=== PATIENT | male | born 1985 | race African-American/Black ===

== ENCOUNTER → 2016-10-16 | Outpatient (CLI) | payer BC ==
[~2016-10-16] MED LIST: CYCL10TA6 PO; IBUP-1050 PO; METH4PAK PO; OXYC1TAB3 PO; VLT/50 PO
--- NOTE | 2016-10-16 16:12 | DIAGNOSTIC IMAGING REPORT ---
LUMBAR SPINE 2 OR 3 VIEWS CLINICAL HISTORY: LOW BACK PAIN pain COMPARISON STUDY: None FINDINGS: Lumbar scoliosis possibly due to muscular spasm. No acute bony abnormality. No evidence for compression deformity. Disc spaces are well preserved. IMPRESSION: Scoliosis possibly on the basis of muscular spasm. Otherwise negative lumbar spine Electronically signed by: Delvin Dolan M.D. 10/16/2016 4:11 PM Dictated Date/Time: 10/16/2016 4:10 PM
== END | disposition home or self-care (01) ==
LOC: C.RADBC 15:55
PROVIDERS: ATTEND Family Medicine
DX: M54.5 Low back pain (principal); M41.9 Scoliosis, unspecified

== ENCOUNTER 2016-11-03 11:46 | Emergency (ER) | payer BC ==
[~2016-11-03] VITALS: Ht 177.8 cm; Wt 112.0 kg
[2016-11-03 11:50] VITALS: TEMP 36.8; Ht 177.8 cm; Wt 112.0 kg
[2016-11-03] MEDS ORDERED: CYCL10TA6 PO (11:58)
[2016-11-03] MEDS ORDERED: VLT/50 PO (11:58)
[2016-11-03] MEDS ORDERED: OXYCODONE HCL IR 5 MG TAB (IMMEDIATE RELEASE) PO STA (14:13)
--- NOTE | 2016-11-03 16:54 | DIAGNOSTIC IMAGING REPORT ---
MRI OF THE LUMBAR SPINE WITHOUT IV CONTRAST CLINICAL HISTORY: Low back pain with left lower extremity radiculopathy. COMPARISON STUDY: Radiographs of the lumbar spine dated 10/16/2016. TECHNIQUE: MRI of the lumbar spine is performed utilizing various T1 and T2-weighted sequences in the axial and sagittal planes. IV contrast was not administered for this examination. FINDINGS: Vertebral body height and alignment are maintained throughout the lumbar spine. Mild degenerative endplate edema is seen at L5-S1. Marrow signal intensity is otherwise normal throughout the visualized bony structures. The transverse and spinous processes appear intact. There is no evidence of spondylolysis. Intervertebral discs: There is degenerative disc desiccation and loss of height at L5-S1. The intervertebral discs are otherwise normal in height and signal intensity. Spinal cord: The visualized spinal cord is normal in morphology and signal intensity. The conus medullaris terminates at the level of L1. The nerve roots of the cauda equina are normal in morphology. L1-L2: Unremarkable. L2-L3: Unremarkable. L3-L4: Unremarkable. L4-L5: Unremarkable. L5-S1: There is a disc herniation eccentric to the left with an inferiorly extruded fragment. The disc fragment measures up to 1.4 cm. There is mild acquired compromise of the central canal at this level with a minimum AP diameter of 8 mm. The disc fragment impinges on the transiting left sacral nerve roots. The neural foramina are clear at this level. Sacrum: The visualized sacrum is normal in morphology and signal intensity. Soft tissues: The paraspinous soft tissues are within normal limits. The retroperitoneal structures are normal as visualized but incompletely assessed. IMPRESSION: 1. There is a disc herniation eccentric to the left with an inferiorly extruded fragment. This contributes to mild acquired compromise of the central canal and impinges on the transiting left-sided sacral nerve roots. 2. No significant degenerative change is identified at the remaining lumbar levels. 3. Mild degenerative endplate edema is noted at L5-S1. Dictated: 11/03/2016 4:40 PM Transcribed: 11/03/2016 4:52 PM CHILO_Mike Electronically signed by: Ru Brock M.D. 11/03/2016 5:05 PM Dictated Date/Time: 11/03/2016 4:40 PM
[2016-11-03 17:35] VITALS: BP 148/82; PULSE 56; O2SAT 98
[2016-11-03] MEDS ORDERED: OXYC1TAB3 PO (17:37)
[2016-11-03] MEDS ORDERED: METH4PAK PO (17:37)
[2016-11-03] MEDS ORDERED: OXYCODONE IR HOME PACK PO ONE (17:45)
--- NOTE | 2016-11-03 20:32 | EMERGENCY ROOM VISIT NOTE ---
History First contact with patient: 12:19 Chief Complaint: BACK PAIN Stated Complaint: SEVERE LOWER BACK AND LEFT LEG PAIN History of Present Illness The patient is a 31 year old male who presents to the Emergency Room with complaints of an approximate 2 week history of lower back pain. The patient reports that he then started to develop severe pain radiating into his left buttock and down the left lower extremity to the foot. The patient denies any recent injury to his back. He denies any history of chronic back pain. The patient saw his family doctor when the pain first started, and had x-rays performed that suggested possible muscle spasm. He was seen by a chiropractor and physical therapist. The patient now reports no weakness of the left lower extremity. He has not noticed any foot drop. He denies any bladder/bowel difficulties/incontinence or saddle anesthesia. He rates his discomfort a 10 out of 10. Review of Systems HEENT: Denies dizziness, visual problems, hearing loss, tinnitus. Denies difficulty swallowing or oral lesions. PULMONARY: Denies cough, shortness of breath, sputum production or hemoptysis. CARDIOVASCULAR: Denies chest pain, palpitations, dyspnea on exertion, orthopnea or peripheral edema. GASTROINTESTINAL: Denies diarrhea, constipation, nausea, vomiting, or abdominal pain. GENITOURINARY: Denies dysuria, frequency, urgency or nocturia. NEUROLOGIC: Denies history of epilepsy, CVA, TIA or chronic headaches. MUSCULOSKELETAL: Denies history of joint tenderness/swelling. SKIN: Denies rashes or lesions. PSYCHIATRIC: Denies history of depression or mental illness. ENDOCRINE: Denies history of diabetes or thyroid disorders. Past Medical/Surgical History Medical Problems: (1) No significant past medical history Surgical Problems: (1) History of ankle surgery Family History FH: cancer FH: diabetes mellitus FH: hypertension Social History Smoking Status: Never Smoker Alcohol Use: none Marital Status: Housing Status: lives with family Occupation Status: employed Current/Historical Medications Scheduled Cyclobenzaprine Hcl (Flexeril), 10 MG PO TID Diclofenac Sod (Voltaren), 50 MG PO BID Methylprednisolone (Medrol Dosepak), 0 PO DAILY Scheduled PRN Oxycodone Ir (Roxicodone Ir), 1-2 TAB PO Q4H PRN for Pain Allergies Coded Allergies: Amoxicillin (Verified Allergy, Unknown, unknown, 11/03/16) Physical Exam Vital Signs Date Time Temp Pulse Resp B/P Pulse Ox O2 Delivery O2 Flow Rate FiO2 11/03/16 17:35 56 148/82 98 Room Air 11/03/16 11:50 36.8 71 18 145/92 93 Room Air Physical Exam CONSTITUTIONAL: Healthy and well nourished. Alert and oriented X 3 with positive affect. Patient appears in moderate discomfort from pain. HEENT: Normocephalic, atraumatic. Pupils equal, round and reactive. NECK: Full active range of motion without discomfort. RESPIRATORY: Clear to auscultation bilaterally with no wheezing, crackles, rhonchi or stridor. CARDIOVASCULAR: Regular rate and rhythm with no murmurs, rubs or gallops. GASTROINTESTINAL: Bowel sounds present in all quadrants. Soft and nontender to palpation. MUSCULOSKELETAL: Examination shows a positive left straight leg raise. Negative logroll. Ankle plantar/dorsiflexion strength is 4 out of 5 on the left , 5 out of 5 on the right. Pedal pulses are intact. The patient has tenderness to palpation through the left lower lumbar region and SI joint. Pelvis stable with rock. INTEGUMENTARY: No rash or other significant dermatologic conditions noted. NEUROLOGIC: No focal neurologic deficits noted. Lower extremity deep tendon reflexes are 2+ and symmetric bilaterally. Medical Decision & Procedures ER Provider Diagnostic Interpretation: MRI of the lumbar spine shows an L5-S1 herniated disc with fragment. Radiologist report is as follows: MRI OF THE LUMBAR SPINE WITHOUT IV CONTRAST CLINICAL HISTORY: Low back pain with left lower extremity radiculopathy. COMPARISON STUDY: Radiographs of the lumbar spine dated 10/16/2016. TECHNIQUE: MRI of the lumbar spine is performed utilizing various T1 and T2-weighted sequences in the axial and sagittal planes. IV contrast was not administered for this examination. FINDINGS: Vertebral body height and alignment are maintained throughout the lumbar spine. Mild degenerative endplate edema is seen at L5-S1. Marrow signal intensity is otherwise normal throughout the visualized bony structures. The transverse and spinous processes appear intact. There is no evidence of spondylolysis. Intervertebral discs: There is degenerative disc desiccation and loss of height at L5-S1. The intervertebral discs are otherwise normal in height and signal intensity. Spinal cord: The visualized spinal cord is normal in morphology and signal intensity. The conus medullaris terminates at the level of L1. The nerve roots of the cauda equina are normal in morphology. L1-L2: Unremarkable. L2-L3: Unremarkable. L3-L4: Unremarkable. L4-L5: Unremarkable. L5-S1: There is a disc herniation eccentric to the left with an inferiorly extruded fragment. The disc fragment measures up to 1.4 cm. There is mild acquired compromise of the central canal at this level with a minimum AP diameter of 8 mm. The disc fragment impinges on the transiting left sacral nerve roots. The neural foramina are clear at this level. Sacrum: The visualized sacrum is normal in morphology and signal intensity. Soft tissues: The paraspinous soft tissues are within normal limits. The retroperitoneal structures are normal as visualized but incompletely assessed. IMPRESSION: 1. There is a disc herniation eccentric to the left with an inferiorly extruded fragment. This contributes to mild acquired compromise of the central canal and impinges on the transiting left-sided sacral nerve roots. 2. No significant degenerative change is identified at the remaining lumbar levels. 3. Mild degenerative endplate edema is noted at L5-S1. Medications Administered Medications (Trade) Dose Ordered Sig/Partha Route Start Time Stop Time Status Last Admin Dose Admin Oxycodone HCl (Roxicodone Immediate Rel Tab) 10 mg NOW STAT PO 11/03/16 14:13 11/03/16 14:14 DC 11/03/16 14:46 10 MG Oxycodone HCl (Roxicodone Immediate Rel 5MG Home Pack) 1 homepack UD ONCE PO 11/03/16 17:45 11/03/16 17:46 DC 11/03/16 18:13 1 HOMEPACK Prednisone (PredniSONE TAB) 60 mg NOW STAT PO 11/03/16 17:38 11/03/16 17:39 DC 11/03/16 18:12 60 MG ED Course Patient history and physical exam were performed. Nurse's notes were reviewed. Vital signs were reviewed, showing a mildly elevated blood pressure 145/92. Although the patient appeared in significant distress, he refused any analgesics. He also refused intravenous access. Based on history and clinical exam findings, I did suggest performing an emergent MRI to rule out cauda equina syndrome or other acute etiologies for his pain. The patient was in agreement. A noncontrast MRI of the lumbar spine showed an L5-S1 disc herniation with extruded fragment. After the MRI was completed, the patient did request something for pain, and was administered OxyIR 5 mg, still continuing to refuse intramuscular or parenteral analgesics. At this point, I discussed further disposition and follow-up for his back. The patient was offered possible observation or admission status for his condition. The patient stated that he would rather go home. The case was also further discussed with Dr. Galo, spine surgeon on-call, who will see him in outpatient follow-up. The patient was administered prednisone 60 mg prior to discharge, and received a prescription for Medrol Dosepak and OxyIR 5 mg. No drinking alcohol or driving while taking OxyIR. The patient was provided contact information for Dr. Galo's office. The patient was happy with plan of care, voiced understanding of all discharge instructions, and rated his pain a 6 out of 10 at the time of discharge. He was encouraged to return to the emergency department for progressively worsening or uncontrolled symptoms. Impression Primary Impression: Herniation of lumbar intervertebral disc with radiculopathy Departure Information Prescriptions Methylprednisolone (MEDROL DOSEPAK) 4 Mg Estuardo 0 PO DAILY, #1 PKT Prov: Adolfo Santos PA 11/03/16 Oxycodone Ir (Roxicodone Ir) 5 Mg Tab 1-2 TAB PO Q4H Y for Pain, #24 TAB For Initial Treatment Prov: Adolfo Santos PA 11/03/16 Referrals No Doctor, Assigned (PCP) [facility] Instructions [facility]
[2016-11-13] MEDS ORDERED: IBUP-1050 PO (07:37)
== END 2016-11-03 18:17 | disposition home or self-care (01) ==
LOC: C.EDB 11:48 → C.EDD 18:17
DX: M51.16 Intervertebral disc disorders with radiculopathy, lumbar region (principal); Z80.9 Family history of malignant neoplasm, unspecified; Z83.3 Family history of diabetes mellitus; Z82.49 Family history of ischemic heart disease and other diseases of the circulatory system; Z79.899 Other long term (current) drug therapy

== ENCOUNTER → 2016-11-05 | Outpatient (CLI) | payer BC | END | disposition home or self-care (01) | LOC: C.LABBC 09:21 | PROVIDERS: ATTEND Orthopaedic Surgery Orthopaedic Surgery of the Spine | DX: Z01.818 Encounter for other preprocedural examination (principal) ==

== ENCOUNTER → 2016-11-05 | Outpatient (CLI) | payer BC ==
[~2016-11-05] VITALS: Ht 180.3 cm; Wt 109.1 kg
[2016-11-05 13:09] LABS: BASO % 0.5 %; BASO ABS # 0.03 K/uL (0-0.2); COMPLETE YES; EOS % 1.5 %; HEMATOCRIT 44.7 % (42-52); LYMPH % 23.4 %; LYMPH ABS # 1.55 K/uL (1.2-3.4); MEAN CELL VOLUME 90.7 fL (80-100); MEAN CORPUSCULAR HEMOGLOBIN 31.6 pg (25-34); MEAN CORPUSCULAR HGB CONC 34.9 g/dl (32-36); MEAN PLATELET VOLUME 10.2 fL (7.4-10.4); NEUT % 67.6 %; PLATELET COUNT 242 K/uL (130-400); RED BLOOD COUNT 4.93 M/uL (4.7-6.1); WHITE BLOOD COUNT 6.61 K/uL (4.8-10.8)
[2016-11-13 07:37] VITALS: Ht 180.3 cm; Wt 109.1 kg
== END | disposition home or self-care (01) ==
LOC: C.LAB 08:00 → EDSTATUS 12-02 07:30
PROVIDERS: ATTEND Orthopaedic Surgery Orthopaedic Surgery of the Spine
DX: Z01.818 Encounter for other preprocedural examination (principal)